=== PATIENT | female | born 1980 | race American Indian/Alaskan Native ===

== ENCOUNTER 2020-01-06 07:30 | Observation (INO) | payer MEDICAID ==
[2020-01-04 12:30] LABS: Basophils % (Auto) 0.6 % (0.0-1.8); Eosinophils # (Auto) 0.2 K/mm3 (0.0-0.4); Eosinophils % (Auto) 2.4 % (0.0-4.3); Hematocrit 38.5 % (30.3-42.9); Hemoglobin 13.2 gm/dl (10.1-14.3); Lymphocytes # (Auto) 2.4 K/mm3 (1.2-5.4); Mean Corpuscular HGB Conc 34 % (30-34); Mean Corpuscular Volume 93 fl (79-97); Monocytes # (Auto) 0.5 K/mm3 (0.0-0.8); Platelet Count 186 K/mm3 (140-440); Red Blood Count 4.13 M/mm3 (3.65-5.03); Red Cell Distribution Width 13.9 % (13.2-15.2)
--- NOTE | 2020-01-04 12:55 | Anesthesia Consultation ---
Anesthesia Consult and Med Hx Date of service: 01/06/20 - Airway Anesthetic Teeth Evaluation: Good ROM Head & Neck: Adequate Mental/Hyoid Distance: Adequate Mallampati Class: Class II Intubation Access Assessment: Probably Good - Pulmonary Exam CTA: Yes - Cardiac Exam Cardiac Exam: RRR - Pre-Operative Health Status ASA Pre-Surgery Classification: ASA3 Proposed Anesthetic Plan: General Nerve Block: TAP - Pulmonary Hx Smoking: Yes (1/2 PPD; 10pk yr hx) Hx Asthma: Yes (no in[place]are use 1-2yrs) SOB: Yes (>4mets functional capacity) - Cardiovascular System Hx Hypertension: Yes Hx Heart Attack/AMI: No (TTE 06/2019: EF 55-60%) Hx Percutaneous Transluminal Coronary Angioplasty (PTCA): No Hx Cardia Arrhythmia: Yes (hx pA-fib; EKG 06/2019 NSR) Hx Pacemaker: No Hx Internal Defibrillator: No - Central Nervous System CVA: No Hx Psychiatric Problems: No - Gastrointestinal Hx Gastroesophageal Reflux Disease: Yes - Endocrine Hx Renal Disease: No Hx Liver Disease: No Hx Insulin Dependent Diabetes: No Hx Non-Insulin Dependent Diabetes: No Hx Thyroid Disease: No - Hematic Hx Anemia: Yes - Other Systems Hx Substance Use: Yes (hx cocaine abuse; sober 8yrs) Hx Obesity: Yes (BMI 35) - Additional Comments Anesthesia Medical History Comments: No hx anesthetic complications.
[~2020-01-06 07:30] MED LIST: ACETAMINOPHEN 500 MG TAB PO SCH; GABAPENTIN 300 MG CAP PO NR; LACTATED RINGERS 1,000 ML IV SCH; MAGNESIUM OXIDE 400 MG TAB PO NR; MIDAZOLAM 2 MG/2 ML INJ IV NR; fentaNYL 100 MCG/2 ML INJ IV PRN
[2020-01-06] MEDS ORDERED: GENTAMICIN 80 MG in SODIUM CHLORIDE 0.9% 100 ML IV ONE (07:42)
--- NOTE | 2020-01-06 07:42 | History and Physical Report ---
History of Present Illness Date of examination: 01/06/20 Date of admission: January 06, 2020 Chief complaint: Abnormal uterine bleeding History of present illness: 39-year-old -0-1-3 with a history of dysfunctional uterine bleeding and dysmenorrhea. The patient is attempted medical management without significant improvement in her symptoms. She reports worsening symptoms related to her menses with heavy bleeding and passage of clots. The patient elected to undergo definitive surgical management. Pelvic ultrasound demonstrated a small leiomyoma. 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 Social history: single - Obstetrical History : 4 Para: 3 Hx # Term Pregnancies: 3 Number of Pregnancies: 0 Spontaneous Abortions: 1 Induced : 0 Number of Living Children: 3 Medications and Allergies Allergies Allergy/AdvReac Type Severity Reaction Status Date / Time aspirin Allergy Seizure Verified 12/30/19 16:16 Penicillins Allergy Unknown Verified 12/30/19 16:16 Home Medications Medication Instructions Recorded Confirmed Last Taken Type Amlodipine Besylate [Norvasc] 5 mg PO DAILY 12/30/19 12/30/19 Unknown History Dicyclomine [Bentyl] 20 mg PO PRN PRN 12/30/19 12/30/19 Unknown History Ferrous Sulfate [Ferrous Sulfate 324 mg PO BID 12/30/19 12/30/19 Unknown History 324 MG] Ibuprofen [Motrin] 800 mg PO Q8HR PRN 12/30/19 12/30/19 Unknown History Active Meds: Active Medications Acetaminophen (Tylenol) 1,000 mg PO PREOP CLARKE Stop: 01/06/20 23:59 Fentanyl (Sublimaze) 100 mcg IV ONCE PRN PRN Reason: sedation for nerve block Stop: 01/06/20 23:59 Gabapentin (Gabapentin) 600 mg PO PREOP NR Stop: 01/06/20 23:59 Lactated Ringer's (Lactated Ringers) 1,000 mls @ 100 mls/hr IV DIRECT CLARKE Stop: 01/06/20 23:59 Magnesium Oxide (Mag-Ox) 400 mg PO PREOP NR Stop: 01/06/20 23:59 Midazolam HCl (Versed) 2 mg IV PREOP NR Stop: 01/06/20 23:59 Review of Systems All systems: negative Genitourinary: vaginal bleeding, pelvic pain - Vital Signs Vital signs: Vital Signs Temp Pulse Resp BP Pulse Ox 98.5 F 74 20 126/84 99 01/04/20 11:50 01/04/20 11:50 01/04/20 11:50 01/04/20 11:50 01/04/20 11:50 Temp Pulse Resp BP Pulse Ox 98.5 F 74 20 126/84 99 01/04/20 11:50 01/04/20 11:50 01/04/20 11:50 01/04/20 11:50 01/04/20 11:50 - Physical Exam Breasts: Positive: deferred Cardiovascular: Regular rate Lungs: Positive: Clear to auscultation Abdomen: Positive: normal appearance Results Result Diagrams: 01/04/20 12:10 All other labs normal. Assessment and Plan - Patient Problems (1) Dysfunctional uterine bleeding Current Visit: Yes Status: Acute Plan to address problem: The patient is scheduled to undergo a robotic hysterectomy and bilateral salpingectomy (2) Dysmenorrhea Current Visit: Yes Status: Acute
[2020-01-06] MEDS ORDERED: HYDROmorphone 1 MG/1 ML INJ IV PRN (08:18)
--- NOTE | 2020-01-06 08:18 | Anesthesia Day of Surgery ---
Anesthesia Day of Surgery - Day of Surgery Patient Examined: Yes Patient H&P Reviewed: Yes Patient is NPO: Yes
[2020-01-06] MEDS ORDERED: GENTAMICIN 430 MG in SODIUM CHLORIDE 0.9% 100 ML IV SCH (08:30)
[2020-01-06] MEDS ORDERED: dexAMETHasone 4 MG/ML VIAL ONE (08:43)
[2020-01-06] MEDS ORDERED: BUPIVACAINE-EPINEPHRINE/PF 0.25%-1:200,000 (30 ML) VIAL INFILTRATI ONE (08:44)
[2020-01-06] MEDS ORDERED: NEOMY 40 MG/POLYMYXIN B 200,000 UNITS/ML (GU) AMPULE IR ONE ×2 (11:41→13:09)
[2020-01-06] MEDS ORDERED: fentaNYL 100 MCG/2 ML INJ ONE (12:11)
[2020-01-06] MEDS ORDERED: ROCURONIUM 50 MG/5 ML INJ IV ONE (12:11)
[2020-01-06] MEDS ORDERED: propofoL 200 MG/20 ML VIAL IV ONE (12:12)
[2020-01-06] MEDS ORDERED: SODIUM CHLORIDE 0.9% IRRIG SOLN 2000 ML IR ONE (13:09)
[2020-01-06] MEDS ORDERED: SODIUM CHLORIDE 0.9% IRR 1,500 ML BOTTLE IR ONE (13:09)
[2020-01-06] MEDS ORDERED: PHENYLEPHRINE/NS 1,000 MCG/10 ML SYRINGE (OR USE) IV ONE (13:10)
[2020-01-06] MEDS ORDERED: NEOSTIGMINE 10MG/10 ML INJ MDV ONE (13:30)
[2020-01-06] MEDS ORDERED: dexAMETHasone 20 MG/5 ML VIAL ONE (13:30)
[2020-01-06] MEDS ORDERED: ONDANSETRON 4 MG/2 ML INJ ONE (13:30)
[2020-01-06] MEDS ORDERED: GLYCOPYRROLATE 0.4 MG/2 ML INJ ONE (13:30)
[2020-01-06] MEDS ORDERED: SODIUM CHLORIDE 0.9% 1000 ML 1,000 ML ONE (13:30)
[2020-01-06] MEDS ORDERED: KETOROLAC 30 MG/1 ML INJ ONE ×2 (13:30→14:06)
[2020-01-06] MEDS ORDERED: ONDANSETRON 4 MG/2 ML INJ IV PRN (13:35)
[2020-01-06] MEDS ORDERED: ACETAMINOPHEN 325 MG TAB PO PRN (13:35)
[2020-01-06] MEDS ORDERED: MORPHINE 4 MG/1 ML INJ IV PRN (13:35)
[2020-01-06] MEDS ORDERED: oxyCODONE /ACETAMINOPHEN 5-325MG TAB PO PRN (13:35)
--- NOTE | 2020-01-06 13:35 | Operative Report ---
Operative Report Operative Report: Date of surgery: January 06, 2020 Preoperative diagnoses: Symptomatic uterine fibroids; dysfunctional uterine bleeding; dysmenorrhea Postoperative diagnoses: Same as above; right ovarian cyst Procedure: Robotic hysterectomy; bilateral salpingectomy; right ovarian cystectomy Surgeon: Mandy Benz M.D. Cycle Repairer: Gina Chavira Anesthesia: Gen. endotracheal anesthesia Estimated blood loss: 50 mL Pathology: Uterus, cervix, bilateral tubes, leiomyomas, right ovarian cyst Indication: 39-year-old -0-1-3 with a history of dysfunctional uterine bleeding and symptomatic uterine fibroids. The patient elected to undergo definitive surgical management. Procedure: The patient was taken to the operating room and given general endotracheal anesthesia without complication. She is prepped and draped in a normal sterile fashion. A bivalve speculum was placed in the patient's vagina and a single- tooth tenaculum placed on the anterior lip of the cervix. The uterus was sounded with the uterine sound. A [employer] uterine manipulator was placed in the bivalve speculum was then removed. Attention was then turned to the patient's abdomen where a millimeter supra umbilical skin incision was then made. A Veress needle was placed and peritoneal entry was verified water-filled syringe. Insufflation of the peritoneal cavity was performed with CO2 gas. The 12 mm trocar was then placed under direct visualization. An additional 8 mm trocar was placed on the patient's left and right lateral side just opposite of the supraumbilical trocar. An additional 8 mm right lateral trocar was then placed as the accessory port. The supraumbilical 12 mm trocar site was closed with the Bal Da Silva device and 0-vicryl suture. The patient was then placed in steep Trendelenburg. The da Camille robot was then engaged. A fenestrated forcep was placed in arm 2 and a vessel sealer was placed in arm 1. General survey revealed evidence of a mildly enlarged fibroid uterus. Also findings of a right ovarian cyst. Multiple serosal leiomyomas. The surgeon then transferred to the surgical console. The mesosalpinx was then isolated on the right. The vessel sealer was used to coagulate the mesosalpinx which was then transected. The tube was transected from the ovary. The tubo-ovarian ligament was then coagulated and transected. The round ligament was then coagulated and transected also. The vesicouterine peritoneum was then entered from the patient's right side. The uterine vessels were then coagulated with the vessel sealer. The vessels were then transected . Attention was then turned to the patient's left side where the tubo-ovarian ligament and mesosalpinx were again isolated coagulated and transected. The vesical peritoneum was then entered from the left and joined in the midline. Peritoneum was reflected off of the lower uterine segment. Uterine vessels were then coagulated and then transected. The blood supply to the uterus was adequately contained, a posterior colpotomy was made. The V care ring was visualized. Posterior colpotomy was created with the monopolar scissors. The incision was continued circumferentially until anterior colpotomy was made. The cervix and uterus were amputated from the vaginal cuff. The uterus was bivalved with findings of an endometrial polyp. The monopolar scissors were used to excise the right ovarian cyst. The uterus was then removed along with the tubes bilaterally and the ovarian cyst through the vagina and a warm laparotomy sponge was placed and maintain the pneumoperitoneum. The vaginal cuff was then closed in a running fashion with V lock suture. Irrigation of the pelvis was performed. Hemoblast was applied to the incision. The skin was then reapproximated with 4-0 Monocryl. The tissue was sent to pathology which included the cervix, leiomyomas, right ovarian cyst, bilateral tubes and uterus. The patient was then successfully extubated. She was then taken to the recovery room in stable condition. All sponge laps and needle counts were correct x2.
[2020-01-06] MEDS ORDERED: D5W/LACTATED RINGERS 1,000 ML IV SCH (14:00)
[2020-01-06] MEDS: KETOROLAC 30 MG/1 ML INJ IV SCH ×2 (14:15→20:52)
[2020-01-06] MEDS ORDERED: IBUPROFEN 600 MG TAB PO SCH (16:00)
--- NOTE | 2020-01-06 17:08 | Post Anesthesia Evaluation ---
- Post Anesthesia Evaluation Patient Participated: Yes Airway Patent: Yes Stable Respiratory Function: Yes Nausea/Vomiting: No Temp > 96.8F: Yes Pain Manageable: Yes Adequeate Hydration: Yes Anesthesia Complications: No
[2020-01-06 22:18] VITALS: BP 108/54
== END 2020-01-06 22:00 | disposition home or self-care (01) ==
LOC: OR 07:30 → OB 13:35
PROVIDERS: ADMIT Obstetrics & Gynecology; ATTEND Obstetrics & Gynecology
DX: D25.9 Leiomyoma of uterus, unspecified (principal); N83.201 Unspecified ovarian cyst, right side; N93.8 Other specified abnormal uterine and vaginal bleeding; N94.6 Dysmenorrhea, unspecified; I10 Essential (primary) hypertension; E78.00 Pure hypercholesterolemia, unspecified; Z79.899 Other long term (current) drug therapy; Z88.0 Allergy status to penicillin; Z88.6 Allergy status to analgesic agent
CPT/HCPCS: 36415; 58571; 58662; 84703; 85025; 86850; 86900; 86901; 88304; 88307; 96361; 96374; 96375; 96376; A4217; G0378; J1100; J1580; J1885; J2250; J2370; J2405; J2704; J3010; J7030; J7120; S2900; J2710